=== PATIENT | male | born 1985 | race Caucasian/White ===

== ENCOUNTER 2024-08-27 23:59 | Emergency (ER) | payer OTHER ==
[~2024-08-27] VITALS: Ht 182.9 cm; Wt 91.0 kg
[2024-08-28 00:02] VITALS: O2SAT 99
[2024-08-28] MEDS: LORAZEPAM 2MG/ML UD SYRINGE IM NR (00:38)
[2024-08-28] MEDS: HALOPERIDOL LACTATE 5MG/ML VIAL IM ONE (00:38)
[2024-08-28] MEDS: DIPHENHYDRAMINE 50MG/ML VIAL IM ONE (00:39)
[2024-08-28 01:01] LABS: *AMPHETAMINES SCREEN URINE NEGATIVE (NEGATIVE); *BARBITURATES SCREEN URINE NEGATIVE (NEGATIVE); *BENZODIAZEPINES SCREEN URINE NEGATIVE (NEGATIVE); *COCAINE SCREEN URINE NEGATIVE (NEGATIVE)
[2024-08-28 01:02] LABS: CANNABINOID URINE SCREEN NEGATIVE (NEGATIVE); ECSTASY MDMA SCREEN URINE NEGATIVE (NEGATIVE); METHADONE URINE SCREEN NEGATIVE (NEGATIVE); OPIATES URINE SCREEN NEGATIVE (NEGATIVE); PHENCYCLIDINE URINE SCREEN NEGATIVE (NEGATIVE)
[2024-08-28 02:52] LABS: BASOPHILS % 0.4 % (0.0-2.0); EOSINOPHILS % 0.4 % (0.0-5.0); HEMATOCRIT. 48.3 % (42.0-52.0); HEMOGLOBIN. 16.1 g/dL (14.0-18.0); LYMPHOCYTES % 28.4 % (20.0-50.0); MEAN PLATELET VOLUME 8.1 fl (7.4-10.4); MONOCYTES % 7.7 % (2.0-8.0); NEUTROPHILS % 63.1 % (40.0-76.0); PLATELET 168 x1000/uL (130-400); RED BLOOD CELL COUNT 5.31 mill/uL (4.7-6.1); RED CELL DISTRIBUTION WIDTH 14.1 % (11.6-14.6)
[2024-08-28 03:12] LABS: CREATININE 1.1 mg/dL (0.6-1.3)
[2024-08-28 03:13] LABS: ETHANOL BLOOD 300 mg/dL (<10); UREA NITROGEN BLOOD 6 mg/dL (9-23)
[2024-08-28 03:14] LABS: ASPARTATE AMINOTRANSFERASE 37 IU/L (<34)
[2024-08-28 03:15] LABS: BILIRUBIN DIRECT 0.2 mg/dL (<=3.0); BILIRUBIN TOTAL 0.6 mg/dL (0.1-1.0); PROTEIN TOTAL 7.3 g/dL (6.0-8.3)
[2024-08-28 10:13] VITALS: BP 138/76; PULSE 60; RESP 16; TEMP 36.7; O2SAT 98
== END 2024-08-28 10:15 | disposition home or self-care (01) ==
LOC: ER 23:59
DX: R45.851 Suicidal ideations (principal); F10.129 Alcohol abuse with intoxication, unspecified; F11.90 Opioid use, unspecified, uncomplicated; F17.200 Nicotine dependence, unspecified, uncomplicated; J45.909 Unspecified asthma, uncomplicated; Z79.899 Other long term (current) drug therapy; Z20.822 Contact with and (suspected) exposure to COVID-19; Z88.5 Allergy status to narcotic agent; Y90.9 Presence of alcohol in blood, level not specified
CPT/HCPCS: 99285; 80076; 80305; 80048; 80307; 80329; 80320; 83690; 85025; 36415; 96372; 87426; J1200; J1630; J2060; G0480

== ENCOUNTER 2024-09-06 16:24 | Emergency (ER) | payer OTHER ==
[~2024-09-06] VITALS: Ht 177.8 cm; Wt 100.0 kg
[2024-09-06 16:30] VITALS: O2SAT 100
[2024-09-06 16:56] LABS: BASOPHILS % 0.5 % (0.0-2.0); EOSINOPHILS % 0.1 % (0.0-5.0); HEMATOCRIT. 44.2 % (42.0-52.0); HEMOGLOBIN. 14.8 g/dL (14.0-18.0); LYMPHOCYTES % 24.3 % (20.0-50.0); MEAN PLATELET VOLUME 7.4 fl (7.4-10.4); MONOCYTES % 6.5 % (2.0-8.0); NEUTROPHILS % 68.6 % (40.0-76.0); PLATELET 165 x1000/uL (130-400); RED BLOOD CELL COUNT 4.96 mill/uL (4.7-6.1); RED CELL DISTRIBUTION WIDTH 13.9 % (11.6-14.6)
[2024-09-06 17:18] LABS: CREATININE 1.0 mg/dL (0.6-1.3); UREA NITROGEN BLOOD 8 mg/dL (9-23)
[2024-09-06 17:19] LABS: ETHANOL BLOOD 279 mg/dL (<10)
[2024-09-06 17:19] LABS: *AMPHETAMINES SCREEN URINE NEGATIVE (NEGATIVE); *BARBITURATES SCREEN URINE NEGATIVE (NEGATIVE); *BENZODIAZEPINES SCREEN URINE NEGATIVE (NEGATIVE); *COCAINE SCREEN URINE NEGATIVE (NEGATIVE)
[2024-09-06 17:20] LABS: CANNABINOID URINE SCREEN NEGATIVE (NEGATIVE); ECSTASY MDMA SCREEN URINE NEGATIVE (NEGATIVE); METHADONE URINE SCREEN NEGATIVE (NEGATIVE); OPIATES URINE SCREEN NEGATIVE (NEGATIVE); PHENCYCLIDINE URINE SCREEN NEGATIVE (NEGATIVE)
[2024-09-06] MEDS: CHLORDIAZEPOXIDE 25MG CAPSULE PO ONE (21:41)
[2024-09-07] MEDS: CHLORDIAZEPOXIDE 25MG CAPSULE PO ONE (06:39)
[2024-09-07 12:25] VITALS: BP 138/88; PULSE 78; RESP 18; TEMP 36.8; O2SAT 98
[2024-09-07] MEDS: SERTRALINE HCL 25MG TABLET PO SCH (12:27)
== END 2024-09-07 12:44 ==
LOC: ER 16:24
DX: R45.851 Suicidal ideations (principal); F10.129 Alcohol abuse with intoxication, unspecified; J45.909 Unspecified asthma, uncomplicated; F33.2 Major depressive disorder, recurrent severe without psychotic features; Z88.5 Allergy status to narcotic agent; Z79.899 Other long term (current) drug therapy; Z98.890 Other specified postprocedural states; Z20.822 Contact with and (suspected) exposure to COVID-19; Y90.8 Blood alcohol level of 240 mg/100 ml or more
CPT/HCPCS: 36415; 80048; 80305; 80307; 80320; 80329; 85025; 87426; 99285; A4606; G0480